=== PATIENT | female | born 1955 | race African-American/Black ===

== ENCOUNTER 2016-10-25 11:25 | Inpatient (IN) | payer OTHER | END 2016-10-28 17:56 | disposition short-term general hospital (02) | DRG 755 | LOC: ER 11:25 → EROBS 16:10 → 3N 17:01 | PROC: 0W9G30Z Drainage of Peritoneal Cavity with Drainage Device, Percutaneous Approach (ICD-10-PCS; principal; 2016-10-28) | DX: C55 Malignant neoplasm of uterus, part unspecified (principal); J90 Pleural effusion, not elsewhere classified; R18.8 Other ascites; I31.3 Pericardial effusion (noninflammatory); N39.0 Urinary tract infection, site not specified; I10 Essential (primary) hypertension; E87.6 Hypokalemia; N93.9 Abnormal uterine and vaginal bleeding, unspecified; K80.20 Calculus of gallbladder without cholecystitis without obstruction; Z88.0 Allergy status to penicillin; Z79.899 Other long term (current) drug therapy; Z86.711 Personal history of pulmonary embolism; Z79.01 Long term (current) use of anticoagulants; Z90.710 Acquired absence of both cervix and uterus ==